=== PATIENT | female | born 1990 | race Caucasian/White ===

== ENCOUNTER 2025-08-08 09:25 | Emergency (ER) | payer BC, MEDICAID, SELFPAY ==
[2025-08-08 09:42] VITALS: BP 139/99; PULSE 105; RESP 15; TEMP 36.8; O2SAT 99; BMI 24.7
--- NOTE | 2025-08-08 10:21 | ED_ITS ---
HPI - Nausea/Vomiting/Diarrhea 2 General: Chief complaint: Nausea/Vomiting/Diarrhea Stated complaint: NV (7 wks preg) Time Seen by Provider: 08/08/25 10:10 Source: patient Mode of arrival: ambulatory Limitations: no limitations History of Present Illness: 35-year-old female who is currently 7 we eks states has been having nausea vomiting over the last week with it increasing over the last 2 days. States not been able to tolerate any p.o. This is her fourth states she has had vomiting with every before. States she has not had any meds at home to take. She denies any abdominal pain denies any vaginal bleeding. Denies any worse improved factors Related Data Previous Rx's ?Medication ?Instructions ?Recorded ondansetron 4 mg disintegrating 4 mg PO Q6H PRN nausea and 08/08/25 tablet vomiting #14 tabs Allergies Allergy/AdvReac Type Severity Reaction Status Date / Time No Known Allergies Allergy Verified 08/08/25 10:54 Review of Systems 2 GI: Reports: vomiting Physical Exam 2 Const: COMMON NORMALS: no acute distress, patient oriented x3 and healthy appearing HENMT: COMMON NORMALS: normocephalic and atraumatic HEAD & SCALP: n ormocephalic and atraumatic Eye: COMMON NORMALS: conjunctivae normal CONJUNCTIVA: Yes conjunctivae normal Neck/C-Spine: COMMON NORMALS: full ROM and supple Chest: COMMONS NORMALS: normal inspection of the chest Resp: COMMON NORMALS: normal respiratory effort Cardio: COMMON NORMALS: regular rate, regular rhythm and No murmurs present (Cardio) RATE: regular rate RHYTHM: regular rhythm GI: COMMON NORMALS: Normal to inspection, nondistended, normoactive bowel sounds present, Soft to palpation, non-tender and no masses PALPATION: Yes Soft to palpation Extremity: COMMON NORMALS: normal to inspection and full ROM Neuro: COMMON NORMALS: patient oriented x3, moves all extremities and no focal motor deficits Psych: COMMON NORMALS: mental status grossly normal, Normal thought process present and cooperative THOUGHT PROCESS: Normal thought process present Skin: COMMON NORMALS: no rashes or lesions noted and no wounds GENERAL SKIN EXAM: no rashes or lesions noted Course 2 Vital Signs: Vital signs: Vital Signs Temperature 98.3 F 08/08/25 09:42 Pulse Rate 105 H 08/08/25 09:42 Respiratory Rate 15 08/08/25 09:42 Blood Pressure 139/99 08/08/25 09:42 Pulse Oximetry 99 08/08/25 09:42 Oxygen Delivery Me thod Room Air 08/08/25 09:42 MDM - Nausea/Vomiting/Diarrhea Medical Decision Making Patient presents for vomiting like hyperemesis gravidarum she has had it previously with her previous . She has no complaints of abdominal pain abdominal exam is benign no vaginal bleeding. She does feel improved after fluids and Zofran was able to tolerate p.o. here I feel she is stable for discharge we will prescribe her Zofran for home she is follow-up with her OB and return if worsening she understands agrees to plan labs showed no significant abnormalities Medical Records I reviewed the patient's medical records. Lab Data I reviewed the patient's lab results. 08/08/25 10:11 08/08/25 10:11 Laboratory Results WBC 12.13 10^3/uL (3.29-11.43) H 08/08/25 10:11 RBC 5.42 10^6/uL (3.85-5.65) 08/08/25 10:11 Hgb 15.50 g/dL (11.27-16.99) 08/08/25 10:11 Hct 46.0 % (36-47) 08/08/25 10:11 MCV 84.9 fl (85-98) L 08/08/25 10:11 MCH 28.6 pg (27-33) 08/08/25 10:11 MCHC 33.7 g/dL (30-55) 08/08/25 10:11 RDW 13.4 % (12.1-15.1) 08/08/25 10:11 Plt Count 314 10^3/cmm (157-399) 08/08/25 10:11 MPV 10.8 fL (7.4-10.4) H 08/08/25 10:11 Neut % (Auto) 80.4 % 08/08/25 10:11 Lymph % (Auto) 13.5 % 08/08/25 10:11 [place] % (Auto) 4.8 % 08/08/25 10:11 Eos % (Auto) 0.4 % 08/08/25 10:11 Baso % (Auto) 0.5 % 08/08/25 10:11 Neut # (Auto) 9.75 10^3/uL (1.8-7.7) H 08/08/25 10:11 Lymph # (Auto) 1.6 10^3/uL (0.8-4.8) 08/08/25 10:11 [place] # (Auto) 0.6 10^3/uL (0.2-0.9) 08/08/25 10:11 Eos # (Auto) 0.1 10^3/uL (0.0-0.8) 08/08/25 10:11 Baso # (Auto) 0.1 10^3/uL (0.0-0.1) 08/08/25 10:11 Nucleated RBC % (auto) 0 % 08/08/25 10:11 Nucleated RBCs # 0.0 /100WBC 08/08/25 10:11 Sodium 135 mmol/L (136-145) L 08/08/25 10:11 Potassium 4.3 mmol/L (3.5-5.1) 08/08/25 10:11 Chloride 98 mmol/L (98-107) 08/08/25 10:11 Carbon Dioxide 24 mmol/L (22-29) 08/08/25 10:11 Anion Gap 17.3 (5-19) 08/08/25 10:11 BUN 8 mg/dL (6-20) 08/08/25 10:11 Creatinine 0.6 mg/dL (0.5-0.9) 08/08/25 10:11 GFR Calculation 114.4 mL/min (90-130) 08/08/25 10:11 Glucose 89 mg/dL (65-115) 08/08/25 10:11 Calculated Osmolality 278 mOsm/kg (285-295) L 08/08/25 10:11 Calcium 9.9 mg/dL (8.5-10.5) 08/08/25 10:11 Total Bilirubin 0.7 mg/dL (0.15-1.2) 08/08/25 10:11 AST 12 U/L (0-32) 08/08/25 10:11 ALT 9 U/L (0-33) 08/08/25 10:11 Alkaline Phosphatase 57 U/L (35-105) 08/08/25 10:11 Total Protein 7.7 g/dL (6.6-8.7) 08/08/25 10:11 Albumin 4.5 g/dL (3.5-5.2) 08/08/25 10:11 Globulin 3.2 g/dL (1.3-4.6) 08/08/25 10:11 Lipase 32 U/L (13-60) 08/08/25 10:11 Amorphous Sediment Not Reportable 08/08/25 11:06 No radiology studies performed this visit Discharge Plan Discharge Patient Disposition: Home Clinical Impression: Vomiting affecting Condition: Stable Prescriptions: New ondansetron 4 mg tablet,disintegrating 4 mg PO Q6H PRN (Reason: nausea and vomiting) Qty: 14 0RF Discharge Orders: Discharge ED (Routine); Ordered 08/08/25 Ordered By: Donavan Baltazar Referrals: Kenisha Gotti MD [Primary Care Provider, [facility]] Discharge Diet: Advance as tolerated Discharge Activity: Resume usual activity Patient Instructions: Hyperemesis Gravidarum (ED) Print Language: Arabic Coding Level of Care Code ED Assessment Counselor for Aidan Vaelro
[2025-08-08] MEDS: ondansetron 2 mg/ML SDV 2 mL 4 MG IVP (10:28)
[2025-08-08 10:34] LABS: Hematocrit 46.0 % (36-47); Hemoglobin 15.50 g/dL (11.27-16.99); Mean Corpuscular HGB Conc 33.7 g/dL (30-55); Mean Corpuscular Hemoglobin 28.6 pg (27-33); Mean Corpuscular Volume 84.9 fl (85-98); Nucleated Red Blood Cells % 0 %; Platelet Count 314 10^3/cmm (157-399); Red Blood Count 5.42 10^6/uL (3.85-5.65); White Blood Count 12.13 10^3/uL (3.29-11.43)
[2025-08-08 10:56] LABS: Alanine Aminotransferase 9 U/L (0-33); Albumin Level 4.5 g/dL (3.5-5.2); Alkaline Phosphatase 57 U/L (35-105); Anion Gap 17.3 (5-19); Aspartate Amino Transferase 12 U/L (0-32); Blood Urea Nitrogen 8 mg/dL (6-20); Calcium 9.9 mg/dL (8.5-10.5); Carbon Dioxide 24 mmol/L (22-29); Chloride 98 mmol/L (98-107); Globulin 3.2 g/dL (1.3-4.6); Glucose 89 mg/dL (65-115); Lipase 32 U/L (13-60); Osmolality Calculated 278 mOsm/kg (285-295); Potassium 4.3 mmol/L (3.5-5.1); Sodium 135 mmol/L (136-145); Total Protein 7.7 g/dL (6.6-8.7)
[2025-08-08 11:18] LABS: Glucose Urine UA Negative (Normal); Nitrate Urine Negative (Negative)
[2025-08-08 11:21] LABS: Add Urine Microscopic? YES
[2025-08-08 11:44] LABS: Specific Gravity, Urine 1.031 (1.005-1.030); UA Slide Review UA Slide Review Perf
[2025-08-08 11:54] VITALS: BP 123/80; PULSE 73; O2SAT 98
== END 2025-08-08 11:56 | disposition home or self-care (01) ==
PROVIDERS: Emergency Provider Emergency Medicine; PCP Pediatrics
DX: O21.9 Vomiting of pregnancy, unspecified (principal)
CPT/HCPCS: 36415; 80053; 81001; 83690; 85025; 96361; 96374; 99284; J2405; J7030